=== PATIENT | female | born 1950 | race Caucasian/White ===

== ENCOUNTER → 2020-04-10 | Outpatient (CLI) | payer OTHER | LOC: M.CT 13:00 | PROVIDERS: ATTEND Internal Medicine Cardiovascular Disease | DX: Z13.6 Encounter for screening for cardiovascular disorders (principal) ==

== ENCOUNTER → 2020-04-16 | Outpatient (CLI) | payer MEDICARE ==
--- NOTE | 2020-04-16 16:43 | CARDNUC ---
[place] [address] CARDIAC NUCLEAR IMAGING REPORT Name: ARCELIA MARTELL Room: [facility]#: [id number] Admission: 04/16/20 Attend Phys: Rene Horvath, Discharge: Date of : 52 Date of Service: 04/16/20 1643 Report #: [id number] THIS REPORT FOR: cc: Rosa Sommer MD, Emily G. MD Liston, Michael J. MD [facility] ~ APPROVED REPORT Imaging Protocol: Rest Tc-99m/Stress Tc-99m 1 day Study performed: 04/16/2020 11:38:33 Indication: Chest pain Patient Location: Out-Patient Stress Tech: Margie Quick Stress Nurse: Ibis Toro RN NM Tech:MAGGI Toro Ht: 5 ft 5 in Wt: 192 lbs BSA: 1.94 m2 BMI: 31.94 Medical History Medical History: Angina, ABN Calcium score, increased fatigue, strong family history of CAD. Medications: No cardiac medications. Allergies: Erythromycin Cardiac Risk Factors: Age, FHX of CAD, ABN calcium score, chest discomfort. Previous Cardiac Procedures: None Pretest Chest Pain Characteristics: No chest pain Exercise History: Indeterminate Physical Disabilities: Knee Discomfort. Meds Held (24 hrs): None Resting Data Rest SPECT myocardial perfusion imaging was performed in supine position 30 minutes following the intravenous injection of 10.8 mCi of Tc-99m Sestamibi. Time of rest injection: 954 Date: 04/16/2020 The images were gated to evaluate regional wall motion and calculate left ventricular ejection fraction. Administration Route: IV Administration Site: Left [place] [address] CARDIAC NUCLEAR IMAGING REPORT Name: ARCELIA MARTELL Room: [facility]#: [id number] Admission: 04/16/20 Attend Phys: Rene Horvath, Discharge: Date of : 52 Date of Service: 04/16/20 1643 Report #: [id number] Pharmacologic stress test was performed by injecting Regadenoson 0.4 mg IV push over 10-15 seconds immediately followed by the intravenous injection of 33.0 mCi of Tc-99m Sestamibi. Time of stress injection: 1134 Date: 04/16/2020 Administration Route: IV Administration Site: Left Hand Gated Stress SPECT was performed 40 minutes after stress injection. The images were gated to evaluate regional wall motion and calculate left ventricular ejection fraction. Prone imaging was performed. Stress Test Details Stress Test: Pharmacologic stress was paired with low level exercise. Reason for pharmacologic stress test: Knee discomfort.. HR Max Heart Rate (APMHR): 152 bpm Resting HR: 68 bpm Target HR (85% APMHR): 129 bpm Max HR Achieved: 120 bpm % of APMHR: 78 Recovery HR: 89 bpm BP Resting BP: 140/81 mmHg Max BP: 186/70 mmHg Recovery BP: 161/90 mmHg ECG Resting ECG: Sinus Rhythm Stress ECG: Sinus Tachycardia ST Change: None Arrhythmia: None Recovery ECG: Sinus Rhythm Recovery ST Change: None Recovery Arrhythmia: None Clinical Reason for Termination: Completed protocol Stress Symptoms: Lightheaded Exercise duration: 4 min 00 sec Exercise capacity: 2.30 METs The patient had no significant cardiac symptoms with Lexiscan infusion. Nurse Comments A 69 year old female presented for a walking lexiscan r/[place] [address] CARDIAC NUCLEAR IMAGING REPORT Name: ARCELIA MARTELL Room: [facility]#: [id number] Admission: 04/16/20 Attend Phys: Rene Horvath, Discharge: Date of : 52 Date of Service: 04/16/20 1643 Report #: [id number] pain/discomfort. Treadmill tolerated. Test time had to be adjusted as patient accidently touched the stop button on the treadmill just before lexiscan injection time. Treadmill restarted and test proceeded with walking and recovery time added on appropriately. Recovery unremarkable with PO caffeine. Patient was escorted by staff to Nuclear Medicine for imaging. Patient was stable and stated she felt good at that time. Stress ECG Conclusion The baseline twelve-lead EKG shows sinus rhythm without significant ST segment or T wave abnormality. EKGs obtained during and post walking Lexiscan protocol shows sinus rhythm and sinus tachycardia with no significant ST segment or T wave changes when compared to baseline. There were no stress-induced arrhythmias. Study Quality Study: Good Artifact: No artifact Study Data At rest, the left ventricular ejection fraction was 73%.. Post stress, the left ventricular ejection was 67%.. TID = 1.05. Perfusion Perfusion images obtained at rest and post Lexiscan stress show uniform uptake of the radioisotope throughout the myocardium. There were no defects to suggest infarct or ischemia. Wall Motion Normal left ventricular wall motion. Nuclear Conclusion ECG Findings: negative for ischemia Clinical Findings: negative for ischemia Nuclear Findings: negative for ischemia Exercise Capacity: not assessed Left Ventricular Function: normal Risk Study: low Myocardial perfusion images show no defect to suggest infarct or ischemia. Left ventricular systolic function appears normal on gated studies. This is a low risk study. <Conclusion> The baseline twelve-lead EKG shows sinus rhythm without significant ST segment or T wave abnormality. [place]Gs [place] [address] CARDIAC NUCLEAR IMAGING REPORT Name: ROMINA GUAJARDOARCELIA Brown Room: [facility]#: [id number] Admission: 04/16/20 Attend Phys: Rene Horvath, Discharge: Date of : 52 Date of Service: 04/16/20 1643 Report #: [id number] walking Lexiscan protocol shows sinus rhythm and sinus tachycardia with no significant ST segment or T wave changes when compared to baseline. There were no stress-induced arrhythmias. <ELECTRONICALLY SIGNED> By: Rene Horvath MD, FACC 04/16/20 1643 42 42 Rene Horvath MD, FACC /INF
== END ==
LOC: M.NUC 04-12 09:44 → M.CRD 09:00 → M.NUC 09:36
PROVIDERS: ATTEND Internal Medicine Cardiovascular Disease
DX: R00.0 Tachycardia, unspecified (principal); R94.30 Abnormal result of cardiovascular function study, unspecified; I20.9 Angina pectoris, unspecified; R53.83 Other fatigue; R07.9 Chest pain, unspecified

== ENCOUNTER → 2020-04-18 | Outpatient (CLI) | payer MEDICARE ==
[2020-04-18 07:47] LABS: CHOLESTEROL 182 mg/dL (<200); HDL CHOLESTEROL 53 mg/dL (>40); LDL CHOLESTEROL 117 mg/dL (<100); TC:HDL 3.4 Ratio (Not establshd); TRIGLYCERIDE 64 mg/dL (<150); VLDL 13 mg/dL (<40)
[2020-04-18 07:48] LABS: SERUM ASSESSMENT Clear
== END ==
LOC: M.LAB 07:06
PROVIDERS: ATTEND Internal Medicine Cardiovascular Disease
DX: R93.1 Abnormal findings on diagnostic imaging of heart and coronary circulation (principal); Z86.718 Personal history of other venous thrombosis and embolism